=== PATIENT | female | born 1950 | race Caucasian/White ===

== ENCOUNTER 2019-04-10 22:53 | Observation (INO) | payer MEDICARE, OTHER ==
[~2019-04-10] VITALS: Ht 157.5 cm; Wt 63.5 kg
[2019-04-10] MEDS ORDERED: ALLEGRA 180MG180 MG PO (23:35)
[2019-04-10 23:36] LABS: BASO % 0.2 % (0.0-2.0); EOS # 0.1 (0.0-0.7); EOS % 0.7 % (0-4.0); GRAN # 8.4 (1.4-6.5); GRAN % 86.4 % (42.2-75.2); HEMATOCRIT 44.8 % (37.0-47.0); HEMOGLOBIN 15.6 g/dl (12.5-16.0); LYMPH # 0.6 (1.2-3.4); MEAN CELL VOLUME 89 fl (80.0-100.0); MEAN CORPUSCULAR HEMOGLOBIN 31 pg (27.0-31.0); MEAN CORPUSCULAR HGB CONC 35 g/dl (33.0-37.0); MONO # 0.6 (0.1-0.6); MONO % 6.4 % (1.7-9.3); PLATELET COUNT 169 K/mm3 (130-400); RED BLOOD COUNT 5.02 M/mm3 (4.10-5.30)
[2019-04-10] MEDS ORDERED: FLONASEALLERGY NS (23:36)
[2019-04-10] MEDS ORDERED: ARICEPT23 MG PO (23:36)
[2019-04-10] MEDS ORDERED: BRINTELLIX10 (23:36)
[2019-04-10] MEDS ORDERED: MUCINEX1200 MG PO (23:36)
[2019-04-10] MEDS ORDERED: BRINTELLIX20 (23:37)
[2019-04-10] MEDS ORDERED: ARICEPT10 MG PO (23:37)
[2019-04-10] MEDS ORDERED: COZAAR 50MG50 MG/TAB PO (23:38)
[2019-04-10] MEDS ORDERED: NORVASC 5MG5 MG/TAB PO (23:39)
[2019-04-10] MEDS ORDERED: TOPROL XL100 MG PO ×2 (23:39)
[2019-04-10] MEDS ORDERED: COUMADIN 5MG5 MG/TAB PO (23:40)
[2019-04-10] MEDS ORDERED: COUMADIN 22.5 MG/TAB PO (23:40)
[2019-04-10 23:45] LABS: ALBUMIN 4.9 gm/dL (3.5-5.0); BILIRUBIN,TOTAL 0.7 mg/dL (0.0-1.0); CALCIUM 9.6 mg/dL (8.4-10.2); CREATININE, serum 0.85 (0.52-1.25); POTASSIUM 4.3 mmol/L (3.4-5.0); TOTAL PROTEIN 8.5 gm/dL (6.4-8.2)
[2019-04-11 01:50] LABS: INR 2.3 (0.8-3.0); PROTHROMBIN TIME 27.4 SECONDS (9.7-12.8)
--- NOTE | 2019-04-11 03:00 | NUR ---
Admitted to medical floor from ER with DX Pancreatitis, states nausea is much better now after meds given in ER, denies any abd pain, states no diarrhea since arriving to hospital, Up to bathroom to void- steady on feet, will call for assistance to bathroom, IV fluids of NS at 125cc/hr- no requests,resting quietly, has now left for the night-will be back in the morning
[2019-04-11 03:25] VITALS: BP 120/63; PULSE 77; TEMP 99.8
[2019-04-11 06:24] LABS: HEMATOCRIT 39.8 % (37.0-47.0); MEAN CELL VOLUME 91 fl (80.0-100.0); MEAN CORPUSCULAR HEMOGLOBIN 31 pg (27.0-31.0); MEAN CORPUSCULAR HGB CONC 34 g/dl (33.0-37.0); MEAN PLATELET VOLUME 9.1 fl (7.4-10.4); PLATELET COUNT 153 K/mm3 (130-400); RED BLOOD COUNT 4.36 M/mm3 (4.10-5.30); REDCELL DISTRIBUTION WIDTH-CV 13.1 % (11.5-14.5)
[2019-04-11 06:37] LABS: HEMOGLOBIN 13.4 g/dl (12.5-16.0)
[2019-04-11 06:43] LABS: BILIRUBIN,TOTAL 0.5 mg/dL (0.0-1.0); CALCIUM 8.6 mg/dL (8.4-10.2); CREATININE, serum 0.79 (0.52-1.25); MAGNESIUM 1.9 mg/dL (1.6-2.3); TOTAL PROTEIN 6.9 gm/dL (6.4-8.2)
[2019-04-11 07:20] LABS: BAND 36 % (0-10); LYMPHOCYTE 3 % (20.0-51.0); NEUTROPHILS 60 % (42.0-75.2); PLATELET ESTIMATE NORMAL (NORMAL)
--- NOTE | 2019-04-11 08:00 | NUR ---
SEE SHIFT ASSESSMENT. PATIENT DENIES NAUSEA, VOMITING OR PAIN AT THIS TIME. PATIENT TOLERATING CLEAR LIQUIDS. WILL CONTINUE TO MONITOR.
[2019-04-11 08:12] VITALS: BP 114/59; PULSE 71; TEMP 99.6
--- NOTE | 2019-04-11 09:58 | NUR ---
Initial visit; Patient thanked [employer] Sous Chef for looking in on her and offering God's blessings.
[2019-04-11 12:04] VITALS: BP 104/56; PULSE 66; TEMP 99.4
--- NOTE | 2019-04-11 13:00 | NUR ---
PATIENT TOLERATING A BLAND DIET WITHOUT COMPLAINTS OF N/V. VIVIANE CHRISTIE CALLED AND UPDATED ON PATIENTS DIET PROGRESS.
--- NOTE | 2019-04-11 14:52 | NUR ---
[employer] Supervisor met with patient and patient's , Tenzin (ph#[phone]) to discuss discharge planning. Patient lives in [place] with her . Patient sees Dr. Miles and has a physcial scheduled for June. Patient reports she may have an appointment made for her sooner to follow up from hospitalization. Patient obtains medications from [facility] with no issue. Patient is independent with [facility] and does not have DME. Patient has Advance Directives although documents are located at home. Patient has no concerns at this time with returning home upon discharge, which is to occur this afternoon.
--- NOTE | 2019-04-11 15:00 | NUR ---
DISCHARGE INSTRUCTIONS REVIEWED WITH PATIENT AND . ALL QUESTIONS ANSWERED. PATIENT PERSONAL BELONGINGS GATHERED. PATIENTS RIGHT AC INT DC'D PER PENDING DISCHARGE. TIP INTACT. PATIENT TOLERATED WELL. PATIENT AMBULATED WITH MEDICAL STAFF TO PERSONAL VEHICLE. PATIENT DISCHARGED.
== END 2019-04-11 15:00 | disposition home or self-care (01) ==
LOC: COL.ER 22:53 → MEDICAL 04-11 01:46
PROVIDERS: Emergency Medicine; ADMIT Internal Medicine
DX: K52.9 Noninfective gastroenteritis and colitis, unspecified (principal); E78.41 Elevated Lipoprotein(a); Z90.49 Acquired absence of other specified parts of digestive tract; I10 Essential (primary) hypertension; E78.5 Hyperlipidemia, unspecified; R73.03 Prediabetes; Z79.01 Long term (current) use of anticoagulants; Z95.2 Presence of prosthetic heart valve; K76.0 Fatty (change of) liver, not elsewhere classified; Z79.899 Other long term (current) drug therapy; Z83.3 Family history of diabetes mellitus; Z82.49 Family history of ischemic heart disease and other diseases of the circulatory system; Z77.22 Contact with and (suspected) exposure to environmental tobacco smoke (acute) (chronic); Z88.5 Allergy status to narcotic agent; K76.89 Other specified diseases of liver
CPT/HCPCS: G0378; J1650; J2405; J7030; J7120; Q9967

== ENCOUNTER → 2020-12-06 | Outpatient (CLI) | payer MEDICARE, OTHER ==
[~2020-12-06] MED LIST: ALLEGRA 180MG180 MG PO; ARICEPT10 MG PO; ARICEPT23 MG PO; BRINTELLIX10; BRINTELLIX20; COUMADIN 22.5 MG/TAB PO; COUMADIN 5MG5 MG/TAB PO; COZAAR 50MG50 MG/TAB PO; FLONASEALLERGY NS; MUCINEX1200 MG PO; NORVASC 5MG5 MG/TAB PO; TOPROL XL100 MG PO
== END ==
LOC: DIA.ED 07:56
DX: E11.9 Type 2 diabetes mellitus without complications (principal); Z79.84 Long term (current) use of oral hypoglycemic drugs; E78.5 Hyperlipidemia, unspecified; I10 Essential (primary) hypertension
CPT/HCPCS: G0108

== ENCOUNTER → 2021-01-06 | Outpatient (CLI) | payer MEDICARE, OTHER | LOC: DIA.ED 08:33 | DX: E11.9 Type 2 diabetes mellitus without complications (principal); E78.5 Hyperlipidemia, unspecified; I10 Essential (primary) hypertension ==

== ENCOUNTER → 2021-11-23 | Outpatient (CLI) | payer MEDICARE, OTHER | LOC: DIA.ED 09:00 | DX: E11.65 Type 2 diabetes mellitus with hyperglycemia (principal); E78.5 Hyperlipidemia, unspecified; I10 Essential (primary) hypertension | CPT/HCPCS: G0108 ==

== ENCOUNTER → 2022-01-23 | Outpatient (CLI) | payer MEDICARE, OTHER | LOC: DIA.ED 16:48 | DX: E11.65 Type 2 diabetes mellitus with hyperglycemia (principal); E78.5 Hyperlipidemia, unspecified; I10 Essential (primary) hypertension | CPT/HCPCS: G0108 ==

== ENCOUNTER → 2022-08-03 | Outpatient (CLI) | payer MEDICARE, OTHER | LOC: DIA.ED 08:38 | DX: E11.65 Type 2 diabetes mellitus with hyperglycemia (principal); E78.5 Hyperlipidemia, unspecified; I10 Essential (primary) hypertension | CPT/HCPCS: G0108 ==